=== PATIENT | male | born 1970 | race Caucasian/White ===

== ENCOUNTER 2017-10-24 06:54 | Emergency (ER) | payer OTHER ==
[~2017-10-24] VITALS: Ht 177.8 cm; Wt 84.6 kg
[~2017-10-24 06:54] MED LIST: BENADRYL25 MG PO; NORVASC5 MG PO
[2017-10-24] MEDS ORDERED: LIDODERM 5% P1 PATCH TD (09:55)
[2017-10-24] MEDS ORDERED: FLEXERIL10 MG PO (09:55)
[2017-10-24] MEDS ORDERED: NAPROSYN500 MG PO (09:55)
[2017-10-24 10:16] VITALS: BP 172/98
== END 2017-10-24 10:17 | disposition home or self-care (01) ==
LOC: EME 06:54
DX: S20.211A Contusion of right front wall of thorax, initial encounter (principal); R07.81 Pleurodynia; W31.82XA Contact with other commercial machinery, initial encounter; Y99.0 Civilian activity done for income or pay
CPT/HCPCS: 71101; 99281; 99283; J1885